=== PATIENT | female | born 2000 | race Caucasian/White ===

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

== ENCOUNTER 2022-08-06 18:13 | Emergency (ER) | payer MEDICAID, SELFPAY ==
[2022-08-06 18:14] VITALS: BP 130/86; PULSE 118; RESP 19; TEMP 36.7; O2SAT 99; BMI 42.5
[2022-08-06 19:42] VITALS: BP 137/93; PULSE 101; RESP 16; O2SAT 95
[2022-08-06 20:00] VITALS: BP 109/66; PULSE 98; RESP 18; O2SAT 99
--- NOTE | 2022-08-06 20:26 | EKG12_ITS ---
Test Reason : PALPS Blood Pressure : / mmHG Vent. Rate : 096 BPM Atrial Rate : 096 BPM P-R Int : 162 ms QRS Dur : 098 ms QT Int : 346 ms P-R-T Axes : 041 039 021 degrees QTc Int : 437 ms Normal sinus rhythm Normal ECG Confirmed by MENA GALEANO, NENA ([id number]), editor producer MORIS BYNUM ([id number]) on 08/07/2022 10:22:10 AM Referred By: FAY Confirmed By:NENA SAN MD
[2022-08-06 20:46] LABS: Absolute Lymphocyte Count 2.77 X10^3/uL (0.83-4.51); Absolute Neutrophil Count 8.8 X10^3/uL (2.0-7.7); Basophil# 0.03 X10^3/uL; Basophil% 0.2 % (0-1); Eosinophil# 0.14 X10^3/uL; Eosinophils% 1.1 % (0-5); Hematocrit 43.4 % (37-47); Hemoglobin 13.8 g/dL (12.0-15.0); Lymphocyte # 2.77 X10^3/ul (0.83-4.51); Lymphocyte % 22.2 % (19-41); Mean Corp Hgb Conc 31.8 g/dL (32-36); Mean Corpuscular Hgb 27.8 pg (27.0-32.0); Mean Corpuscular Volume 87.5 fL (81-99); Mean Platelet Vol. 10.8 fl (6.2-12.0); Monocyte# 0.73 X10^3/uL; Monocyte% 5.9 % (0-10); NRBC Flagged by Analyzer 0 % (0-5); Neutrophil # 8.75 X10^3/uL (2.7-7.7); Neutrophil % 70.3 % (47-70); Platelet Count 299 K/mm3 (150-450); RBC Distribution Width CV 13.1 % (11.6-14.6); RBC Distribution Width SD 41.8 fl (35.1-43.9); Red Blood Count 4.96 M/mm3 (4.2-5.4); White Blood Count 12.5 K/mm3 (4.4-11.0)
[2022-08-06 21:00] VITALS: BP 132/77; PULSE 82; RESP 18; O2SAT 99
[2022-08-06 21:04] LABS: Anion Gap 5 (5-15); BUN 13 mg/dL (7-18); BUN/Creat Ratio 12.1 RATIO (10-20); Calcium,Total 9.3 mg/dL (8.5-10.1); Chloride 110 mmol/L (98-107); Creatinine, Serum 1.07 mg/dL (0.55-1.02); EST Glomerular Filtration Rate 69 mL/min (>60); Est Glom Filt Rate - Afr Amer 83 mL/min (>60); Estimated Creatinine Clearance 92.96 ml/min; Glucose 90 mg/dL (74-106); Potassium 3.8 mmol/L (3.5-5.1); Sodium Level 142 mmol/L (136-145); Troponin-I HS (w/2H Reflex) 5 pg/mL (3.0-54.0)
--- NOTE | 2022-08-06 21:05 | RAD_ITS ---
INDICATION: chest pain EXAMINATION/TECHNIQUE: X-RAY - XR Chest 1 View COMPARISON: No previous relevant examinations available for comparison.. FINDINGS: LIFE-SUPPORT AND LINES: 1. None HEART AND VESSELS: The cardiac silhouette, pulmonary vasculature have normal appearance. No evidence of congestive failure. LUNGS AND PLEURAL SPACES: Lungs are clear. No focal infiltrate, consolidation or effusions. No evidence of pneumothorax. No pulmonary mass is noted. MEDIASTINUM AND HILAR REGIONS: No masses adenopathy noted. No areas of calcification. Visualized upper airway is normal in position. BONY ELEMENTS: No acute bony changes noted. RAD/Chest 1 View (Portable) IMPRESSION: 1. No evidence of acute cardiopulmonary process Electronically Signed: Power Gray MD at 21:31 EST ,
[2022-08-06 22:00] VITALS: RESP 18
--- NOTE | 2022-08-06 22:01 | EDS_ITS ---
HPI History of Present Illness Chief Complaint: Palpitations Narrative Narrative: 22-year-old female presenting with palpitations. She states has had this since she was 15 years old. She states that she has been seen by her primary care recently. She had a recent echocardiogram which was normal. She also had a recent Holter monitor which she believes she wore from the fourth to the 18th. She states that this was resulted. She notes that it states that her lower end of her heart rate is 28 and the highest is in the 130s. Patient has had some lightheadedness. Today she states the only new is some chest pain which has been going on today. No sharp pleuritic pain. No pain with deep inspiration. Its not heaviness. She states these episodes are short lasted. No history of cardiac disease. PFSH PFSH Medical History no medical history Home Medications dextroamphetamine-amphetamine 15 mg tablet (Adderall) 25 mg PO DAILY 12/13/15 [History Last Taken Unknown] escitalopram oxalate 10 mg tablet 10 mg PO DAILY 12/13/15 [History Last Taken Unknown] levothyroxine 25 mcg tablet 25 mcg PO DAILY 12/13/15 [History Last Taken Unknown] Clonidine 0.2 mg PO DAILY 12/10/19 [History Last Taken Unknown] cephalexin 500 mg capsule 500 mg PO Q6 #28 caps 12/11/19 [Rx Last Taken Unknown] Allergy/AdvReac Type Severity Reaction Status Date / Time Penicillins Allergy Rash Verified 08/06/22 18:16 Surgical History no surgical history Social History Smoking Status: Current every day smoker tobacco type: e-cigarettes ROS ROS ED Constitutional Constitutional ED: Denies chills or fever(s) Eyes Eyes: Denies none ENT ENT ED: Denies rhinorrhea or sore throat Cardiovascular Cardiovascular: Reports as per HPI and palpitations Respiratory/Chest Respiratory/Chest: Denies dyspnea Gastrointestinal Gastrointestinal: Denies abdominal pain or constipation Genitourinary Genitourinary ED: Denies dysuria or hematuria Musculoskeletal Musculoskeletal: Denies arthralgias or back pain Integumentary Denies abscess Neurologic Neurologic: Denies headache(s) EXAM Physical Exam Const Vital Signs: 08/06/22 18:14 08/06/22 19:42 08/06/22 19:42 Temperature 98.1 F Temperature Source Temporal Pulse Rate 118 H 101 H Pulse Rate [Lying] Pulse Rate [Sitting (for 1 minute prior to obtaining)] Pulse Rate [Standing (for 1 minute prior to obtaining)] Respiratory Rate 19 H 16 Respiratory Effort Normal Non-Labored Blood Pressure 130/86 H 137/93 H Blood Pressure [Lying] Blood Pressure [Sitting (for 1 minute prior to obtaining)] Blood Pressure [Standing (for 1 minute prior to obtaining)] Blood Pressure Mean 100 107 Blood Pressure Mean [Lying] Blood Pressure Mean [Sitting (for 1 minute prior to obtaining)] Blood Pressure Mean [Standing (for 1 minute prior to obtaining)] Pulse Ox 99 95 Oxygen Delivery Method Room Air Room Air 08/06/22 20:00 08/06/22 22:15 Temperature Temperature Source Pulse Rate 98 Pulse Rate [Lying] 88 Pulse Rate [Sitting (for 1 minute prior to obtaining)] 98 Pulse Rate [Standing (for 1 minute prior to obtaining)] 118 H Respiratory Rate 18 Respiratory Effort Blood Pressure 109/66 Blood Pressure [Lying] 134/74 H Blood Pressure [Sitting (for 1 minute prior to obtaining)] 144/129 H Blood Pressure [Standing (for 1 minute prior to obtaining)] 107/66 Blood Pressure Mean 80 Blood Pressure Mean [Lying] 94 Blood Pressure Mean [Sitting (for 1 minute prior to obtaining)] 134 Blood Pressure Mean [Standing (for 1 minute prior to obtaining)] 79 Pulse Ox 99 Oxygen Delivery Method Room Air Positive well nourished General Appearance ED: NAD; Negative for pallor HEENT Reports moist mucous membranes normocephalic Eyes PERRL and EOMs intact bilaterally Chest Wall inspection of chest normal and palpation of chest normal Resp normal respiratory effort and clear to auscultation bilaterally Auscultation: Negative for rales, rhonchi or wheezes Cardio regular rate and regular rhythm GI normal to inspection, nondistended, normoactive bowel sounds Back/Spine no CVA tenderness Neuro oriented x3 and CN's II-XII intact bilaterally Sensorium / Orientation: awake and alert Psych mental status grossly normal Skin no rashes or lesions noted General Skin Exam: Negative for jaundice or pallor Heart Score History: Slightly/Non-Suspicious ECG: Normal Age: </= 45 years Risk Factors: 1 or 2 Risk Factors Troponin: </= Normal Limit Score: 1 MDM MDM MDM Narrative Medical decision making narrative: 22-year-old female with palpitations. This is not a new issue for her. I tried to look at her phone to see her monitor results, however the patient refuses to hang up FaceTime with her father so I cannot see anything on the screen because his face is there. I cannot see any rhythms all I can see is a dictated result stating it is 28-230 or so on the monitor. Recent echocardiogram was reviewed with Dr. Xiong. He is on-call for her primary care physician. He also looked over her recent Holter monitor. He states that the area of concern which showed a lower end of heart rate of 28 looks like there was a long pause but it does not look like there is any bradycardia necessarily. Since he is having chest pain today I will assess that. I will obtain orthostatics as well. CBC to assess white blood cell count, hemoglobin, platelets, differential. BMP to assess renal function electrolytes and anion gap. Chest x-ray to assess for cardiopulmonary source. I will also obtain a high- sensitivity troponin. Low suspicion for PE. CBC shows slight leukocytosis 12.5. Hemoglobin hematocrit are stable. Platelets are normal. Creatinine slightly elevated today at 1.07. GFR normal at 69. High-sensitivity troponin is 5. Chest x-ray on my interpretation shows no acute cardiopulmonary process. Radiologist are persistent agrees. She has already been referred to a ssrs report developer in the [facility] system. Orthostatic vital signs were positive. With creatinine slightly elevated 1.07 but she will receive a liter of IV fluids. After this I feel she would be stable for discharge home and cardiology follow-up. Impression: 1. Palpitations 2. Orthostatic hypotension 3. Mildly elevated Lab Data Attestation: I reviewed the patient's lab results. Labs: Laboratory Results - last 24 hr 08/06/22 08/06/22 20:39 20:39 WBC 12.5 H RBC 4.96 Hgb 13.8 Hct 43.4 MCV 87.5 MCH 27.8 MCHC 31.8 L RDW Std Deviation 41.8 RDW Coeff of [place]airon 13.1 Plt Count 299 MPV 10.8 Immature Gran % (Auto) 0.300 Neut % (Auto) 70.3 H Lymph % (Auto) 22.2 [place] % (Auto) 5.9 Eos % (Auto) 1.1 Baso % (Auto) 0.2 Absolute Neuts (auto) 8.8 H Absolute Lymphs (auto) 2.77 Nucleated RBC % 0 Sodium 142 Potassium 3.8 Chloride 110 H Carbon Dioxide 27.0 Anion Gap 5 BUN 13 Creatinine 1.07 H Estim Creat Clear Calc 92.96 Est GFR (MDRD) Af Amer 83 Est GFR (MDRD) Non-Af 69 BUN/Creatinine Ratio 12.1 Glucose 90 Calcium 9.3 Troponin I High Sens 5 Radiography Diagnostic Testing: Clinical Impression(s) from Imaging Studies Chest X-Ray 08/06/22 21:05 IMPRESSION: 1. No evidence of acute cardiopulmonary process Electronically Signed: Power Gray MD at 21:31 EST , Discharge Plan Triage Chief Complaint: Palpitations ED Provider: Toney Loera Dx/Rx/DC Orders Prescriptions: No Action levothyroxine 25 MCG tablet 25 mcg PO DAILY Label Comments: PT UNSURE OF DOSAGE dextroamphetamine-amphetamine [Adderall] 15 MG tablet 25 mg PO DAILY escitalopram oxalate 10 MG tablet 10 mg PO DAILY Clonidine 0.2 mg PO DAILY cephalexin 500 MG capsule 500 mg PO Q6 Qty: 28 0RF Primary Care Provider: Gertrude Parks NP Referrals: Gertrude Parks NP, [employer] OPERATOR-[facility] [Primary Care Provider] -
[2022-08-06 22:15] VITALS: BP 107/66; BP 134/74; BP 144/129; PULSE 118; PULSE 88; PULSE 98
[2022-08-06 22:43] LABS: Reflex Troponin-HS? (from REC) Y
[2022-08-06] MEDS: 0.9% Normal Saline 1,000 ML 999 ML IV (22:54)
[2022-08-07 00:18] VITALS: BP 132/78; PULSE 82; RESP 16; O2SAT 97
== END 2022-08-07 00:19 | disposition home or self-care (01) ==
PROVIDERS: Emergency Provider Student in an Organized Health Care Education/Training Program; PCP Nurse Practitioner Family; Visit Provider Student in an Organized Health Care Education/Training Program
DX: R00.2 Palpitations (principal); R07.9 Chest pain, unspecified; I95.1 Orthostatic hypotension; F17.210 Nicotine dependence, cigarettes, uncomplicated
CPT/HCPCS: 71045; 80048; 84484; 85025; 93005; 96360; 99285; J7030; A4216